=== PATIENT | female | born 1955 | race African-American/Black ===

== ENCOUNTER 2022-01-04 10:46 | Observation (INO) | payer MEDICARE ==
[2022-01-04] MEDS ORDERED: Iopamidol 370 76% 100 ML VIAL ONE (10:57)
[2022-01-04] MEDS ORDERED: hydrALAZINE 20 MG/ML VIAL ONE (11:14)
[2022-01-04 11:53] VITALS: BMI 21.9
[2022-01-04] MEDS ORDERED: Ondansetron ODT 4 MG TAB PO PRN (12:28)
[2022-01-04] MEDS ORDERED: Acetaminophen 325 MG TAB PO PRN (12:28)
[2022-01-04] MEDS ORDERED: Nitroglycerin 0.4 MG TAB (25 Tab Bottle) SL PRN (12:30)
[2022-01-04] MEDS ORDERED: Electrolyte Replacement Protocol 1 EACH FS SCH (12:45)
[2022-01-04] MEDS ORDERED: hydrALAZINE 20 MG/ML VIAL SLOW IVP PRN (12:53)
[2022-01-04] MEDS ORDERED: Morphine 2 MG/ML VIAL SLOW IVP PRN (12:55)
[2022-01-04] MEDS ORDERED: Potassium Chloride 20 MEQ TAB PO SCH (14:00)
[2022-01-04] MEDS: Carvedilol 25 MG TAB PO SCH (17:00)
[2022-01-04] MEDS ORDERED: Ketorolac Tromethamine 30 MG/ML VIAL IVP PRN (19:04)
[2022-01-04] MEDS ORDERED: Methocarbamol 500 MG TAB PO PRN (19:05)
[2022-01-04 19:48] LABS: Potassium 3.7 mmol/L (3.5-5.1)
[2022-01-05 05:14] LABS: #Eosinphils 0.1 10x3/uL (0.0-0.5); #Monocytes 0.5 10x3/uL (0.0-1.1); #Neutrophils 3.2 10x3/uL (1.5-8.4); %Basophils 0.5 % (0.0-2.0); %Eosinophils 1.5 % (0.0-6.0); %Monocytes 7.7 % (0.0-10.0); Mean Corpuscular HGB CONC 33.7 g/dL (32.0-36.0); Mean Corpuscular Hemoglobin 33.2 pg (27.0-33.0); Mean Corpuscular Volume 98.5 fl (81.6-98.3); Mean Platelet Volume 10.2 fl (7.4-10.4); Platelet Count 241 10x3/uL (150-450); RBC Distribution Width 12.5 % (11.5-14.5); Red Blood Cell (RBC) Count 2.71 10x6/uL (3.90-5.03)
[2022-01-05 05:29] LABS: Anion Gap 13 mmol/L (10-20); BUN (Urea Nitrogen) 16 mg/dL (9.8-20.1); Calc. Creatinine Clearance 50 mL/min (70-130); Calcium 8.4 mg/dL (7.8-10.44); Carbon Dioxide 19 mmol/L (23-31); Cardiac Risk 3.2 (Less than 4.5); Chloride 112 mmol/L (98-107); Cholesterol 92 mg/dl (< 200 Desired); Glucose 88 mg/dL (80-115); HDL Cholesterol 29 mg/dL (>60 Neg Risk); LDL Cholesterol, Calculated 50 mg/dL; Magnesium 1.9 mg/dL (1.6-2.6); Potassium 3.7 mmol/L (3.5-5.1); Sodium 140 mmol/L (136-145); Triglycerides 64 mg/dL (Less than 150)
[2022-01-05] MEDS ORDERED: Magnesium 2 GM/50 ML(in water) 2 GM in Premix Bag 1 BAG IVPB SCH (05:45)
[2022-01-05] MEDS: Carvedilol 25 MG TAB PO SCH (08:19)
[2022-01-05] MEDS ORDERED: Pantoprazole 40 MG GRANULES PACKET PO SCH (09:00)
[2022-01-05] MEDS ORDERED: Atorvastatin Calcium 10 MG TAB PO SCH (09:00)
[2022-01-05] MEDS ORDERED: Ezetimibe 10 MG TAB PO SCH (09:00)
[2022-01-05] MEDS ORDERED: Folic Acid 1 MG TAB PO SCH (09:00)
[2022-01-05] MEDS ORDERED: Clopidogrel Bisulfate 75 MG TAB PO SCH (09:00)
[2022-01-05] MEDS ORDERED: Losartan 25 MG TAB PO SCH (09:00)
[2022-01-05] MEDS ORDERED: Aspirin Chewable 81 MG TAB PO SCH (09:00)
[2022-01-05 12:56] VITALS: BP 110/53; TEMP 96.2
== END 2022-01-05 15:30 | disposition home or self-care (01) ==
LOC: CSHTELE 10:46
PROVIDERS: ADMIT Internal Medicine; ATTEND Internal Medicine
DX: R07.89 Other chest pain (principal); I70.0 Atherosclerosis of aorta; I25.10 Atherosclerotic heart disease of native coronary artery without angina pectoris; Z95.5 Presence of coronary angioplasty implant and graft; E87.6 Hypokalemia; E78.2 Mixed hyperlipidemia; K21.9 Gastro-esophageal reflux disease without esophagitis; I10 Essential (primary) hypertension; D64.9 Anemia, unspecified; Z79.82 Long term (current) use of aspirin; I73.9 Peripheral vascular disease, unspecified; F17.210 Nicotine dependence, cigarettes, uncomplicated
CPT/HCPCS: 36415; 71275; 74174; 80048; 80061; 83735; 84443; 85025; 93306; 94760; 96365; 96375; 96376; G0378; J0360; J1885; J3475; Q9967

== ENCOUNTER 2022-11-09 10:50 | Emergency (ER) | payer OTHER, MEDICARE ==
[2022-11-09] MEDS ORDERED: Acetaminophen 325 MG TAB ONE (14:11)
== END 2022-11-09 15:46 | disposition home or self-care (01) ==
LOC: CSHERS 10:50
DX: S00.83XA Contusion of other part of head, initial encounter (principal); I10 Essential (primary) hypertension; E78.00 Pure hypercholesterolemia, unspecified; F17.210 Nicotine dependence, cigarettes, uncomplicated; W22.8XXA Striking against or struck by other objects, initial encounter
CPT/HCPCS: 70450; 70486; 76377